=== PATIENT | male | born 1960 | race Caucasian/White ===

== ENCOUNTER 2022-11-07 11:38 | Inpatient (IN) | payer BC ==
[~2022-11-07] VITALS: Ht 185.4 cm; Wt 117.2 kg
[2022-11-07 11:59] LABS: BASOPHILS # (AUTO) 0.1 X10'3 (0-0.2); EOSINOPHILS % (AUTO) 0.3 % (0-6); HEMOGLOBIN 15.4 g/dl (14.0-17.9); LYMPHOCYTES # (AUTO) 1.1 X10'3 (1.1-4.8); MEAN CORPUSCULAR HEMOGLOBIN 30.7 PG (27.0-31.0); MEAN PLATELET VOLUME 9.4 FL (7.4-10.4); NEUTROPHILS # (AUTO) 5.3 X10'3 (1.8-7.7)
[2022-11-07 12:01] LABS: BASOPHILS % (AUTO) 0.9 % (0-1); LYMPHOCYTES % (AUTO) 15.7 % (21-51); MEAN CORPUSCULAR HGB CONC 32.9 g/dL (33.0-36.5); MEAN CORPUSCULAR VOLUME 93.3 FL (78-98); MONOCYTES # (AUTO) 0.7 X10'3 (0-0.9); MONOCYTES % (AUTO) 9.8 % (2-12); NEUTROPHILS % (AUTO) 73.3 % (42-75); PLATELET COUNT 152 X10'3 (140-440); RED BLOOD COUNT 5.04 X10'6 (4.70-6.10); RED CELL DISTRIBUTION WIDTH 14.4 % (11.5-14.5); WHITE BLOOD COUNT 7.2 X10'3 (4.5-11.0)
[2022-11-07 12:22] LABS: ALANINE AMINOTRANSFERASE 36 U/L (12-78); ALBUMIN 3.5 G/DL (3.4-5.0); ALKALINE PHOSPHATASE 74 IU/L (46-116); ANION GAP 11 (8-16); ASPARTATE AMINO TRANSFERASE 51 U/L (10-37); BILIRUBIN,TOTAL 3.4 MG/DL (0.1-1.0); BLOOD UREA NITROGEN 23 MG/DL (7-18); CALCIUM 9.1 MG/DL (8.5-10.1); CHLORIDE 95 MMOL/L (99-107); CREATININE 1.53 MG/DL (0.60-1.10); GLUCOSE 136 MG/DL (70-104); PRO BRAIN NATRIURETIC PEPTIDE 3542 PG/ML (0-125); SODIUM 134 MMOL/L (135-145); TOTAL CARBON DIOXIDE 28.1 MMOL/L (24-32); TOTAL PROTEIN 6.9 G/DL (6.4-8.2); eCRCL 56 ML/MIN; eGFR 46 ML/MIN
[2022-11-07 12:23] LABS: POTASSIUM 2.9 MMOL/L (3.5-5.1)
[2022-11-07 12:34] LABS: LARGE PLATELETS FEW; PLATELET ESTIMATE NORMAL
--- NOTE | 2022-11-07 13:44 | NUR ---
EMT STUDENT BILL ATTEMPTING IV AT THIS TIME AND WILL COLLECT BLOOD FOR LABS.
[2022-11-07] MEDS ORDERED: carvedilol 6.25mg tablet PO STA (14:53)
[2022-11-07] MEDS ORDERED: aspirin 81mg tab.chew PO ONE (14:55)
[2022-11-07] MEDS ORDERED: potassium CL 10mEq/100ml bag 100 ML IV ONE (15:00)
[2022-11-07] MEDS ORDERED: potassium Cl 40MEQ/1/2NS 520ml 520 ML IV ONE (15:00)
[2022-11-07] MEDS ORDERED: magnesium oxide 400mg tablet PO ONE (15:00)
[2022-11-07] MEDS ORDERED: magnesium 2GM in 50ml NS 50 ML IV ONE (15:00)
[2022-11-07] MEDS ORDERED: potassium Cl 20 mEq SR tablet PO STA (15:06)
--- NOTE | 2022-11-07 16:01 | NUR ---
RN CK PT BG AND IT WAS 116
[2022-11-07 16:03] LABS: APTT 29 SECONDS (22-32); C-REACTIVE PROTEIN 1.65 MG/DL (0.0-0.5); INR 1.3 INR; MAGNESIUM 1.6 MG/DL (1.5-2.4); PROTHROMBIN TIME 14.2 SECONDS (9.0-12.0)
[2022-11-07 16:08] LABS: ETHANOL < 10 MG/DL (<10)
--- NOTE | 2022-11-07 16:20 | NUR ---
PT TROP 77. RN NOTIFIED DR ZHOU. NO ORDS RECD.
[2022-11-07] MEDS ORDERED: METF-1203 PO (16:24)
[2022-11-07] MEDS ORDERED: DAPA5TAB PO (16:24)
[2022-11-07] MEDS ORDERED: PANT40TA54 PO (16:24)
[2022-11-07] MEDS ORDERED: magnesium hydroxide 30ml (MOM) UD suspension PO PRN (17:10)
[2022-11-07] MEDS ORDERED: acetaminophen 325mg tablet PO PRN (17:10)
[2022-11-07] MEDS ORDERED: ondansetron/PF 4mg/2ml inj IV PRN (17:10)
[2022-11-07] MEDS ORDERED: magnesium Cl slow-release 64mg tablet PO PRN (17:10)
[2022-11-07] MEDS ORDERED: potassium Cl 20 mEq SR tablet PO PRN (17:10)
[2022-11-07] MEDS ORDERED: potassium Cl 40MEQ/1/2NS 520ml 520 ML IV PRN (17:10)
[2022-11-07] MEDS ORDERED: magnesium 2GM in 50ml NS 50 ML IV PRN (17:10)
[2022-11-07] MEDS ORDERED: magnesium 4gm in 100ml NS 100 ML IV PRN (17:10)
[2022-11-07] MEDS ORDERED: mag hydrox/Alum hydrox/simeth 30ml oral suspension PO PRN (17:10)
--- NOTE | 2022-11-07 17:15 | NUR ---
PT HAVING ECHO AT THIS TIME. BED IS BLOCKING IV POLE. RN WILL START MAG ONCE ECHO COMPLETE. PER PHARMACIST MAG AND K HAVE NOT BEEN TESTED AND RAN TOGETHER. RN INQ WITH DR ZHOU AND HE APPROVED THEM RUNNING TOGETHER YSIDE SO RN WILL NOT HAVE TO PLACE A NEW IV.
[2022-11-07] MEDS ORDERED: furosemide 40mg/4ml inj IV STA (17:23)
[2022-11-07] MEDS: aspirin 81mg, enteric-coated 1 TAB TABLET.DR PO SCH (17:30)
[2022-11-07] MEDS ORDERED: dextrose 50%-water 50ml dispensing syringe IV PRN ×2 (18:00)
[2022-11-07] MEDS ORDERED: DEXTROSE 15 GM of carb/4 tabs (each vial/BOTTLE has 4 tablets) PO PRN ×2 (18:00)
[2022-11-07] MEDS ORDERED: insulin Lispro (HumaLOG) vial - multi-dose SQ SCH (18:00)
[2022-11-07] MEDS ORDERED: haloperidol 5mg tablet PO PRN (18:00)
[2022-11-07] MEDS ORDERED: MESSAGE TO PHARMACY PO ONE (18:00)
[2022-11-07] MEDS ORDERED: LORazepam 2 mg/ml vial IV PRN (18:00)
[2022-11-07] MEDS ORDERED: glucagon, human recombinant 1mg kit SUBCUT PRN (18:00)
--- NOTE | 2022-11-07 18:14 | NUR ---
PT REPORTS INCREASING SOB AND WEAKNESS BUT NO CP. REPEAT EKG BEING DONE AT THIS TIME. 2 L BNC O2 APPLIED. VS TAKEN.
--- NOTE | 2022-11-07 18:16 | NUR ---
RN NOTIFIED DR ZHOU THAT PT C/O INCREASING SOB, 2L BNC APPLIED SAT 99%, BP 94/71 REPEAT ON OPPOSITE ARM 94/71/HR 102/REPEAT EKG DONE/ECHO FINISHED. PER DR ZHOU CONT TO MONITOR.
--- NOTE | 2022-11-07 18:34 | NUR ---
DANETTE ROY WILL HANG MAG.
[2022-11-07 19:07] LABS: BILIRUBIN,URINE MODERATE (Neg); CLARITY,URINE SLIGHTLY CLOUDY (Clear); GLUCOSE, URINE NEGATIVE (Neg); KETONES,URINE TRACE mg/dl (Neg); LEUKOCYTE ESTERASE ,URINE NEGATIVE (Neg); NITRITES, URINE NEGATIVE (Neg); OCCULT BLOOD,URINE NEGATIVE (Neg); PH,URINE 5.5 (4.8-8.0); PROTEIN,URINE 100 mg/dl (Neg)
[2022-11-07 19:11] LABS: COLOR,URINE DARK YELLOW (Yellow); UA COLLECTION TYPE CLN CATCH MIDSTREAM
[2022-11-07 19:14] LABS: URINE AMPHETAMINE SCREEN POSITIVE (Neg); URINE BARBITUATE SCREEN NEGATIVE (Neg); URINE BENZODIAZEPINES SCREEN NEGATIVE (Neg); URINE CANNABINOID SCREEN NEGATIVE (Neg); URINE COCAINE SCREEN NEGATIVE (Neg); URINE METHADONE SCREEN NEGATIVE (Neg); URINE OPIATE SCREEN NEGATIVE (Neg); URINE PHENCYCLIDINE SCREEN NEGATIVE (Neg)
[2022-11-07 19:17] LABS: BACTERIA,URINE FEW /HPF (Neg); MUCUS STRANDS FEW /LPF (Neg); SQUAMOUS EPITHELIAL CELL,UR FEW /LPF (FEW)
[2022-11-07 19:18] LABS: COARSE GRANULAR CAST 0-3 /LPF (NEGATIVE); SPERM FEW /HPF (NEGATIVE)
--- NOTE | 2022-11-07 19:25 | NUR ---
PAGER ID: [phone] MESSAGE: Pelon Reardon admitted patient in ER 4, her for New onset CHF. Pt is increasingly agitated, Says he cant breath tho O2 is 97 on room air. Mottling appearing on abdomen and legs. Florina ROY [id number]
[2022-11-07] MEDS: sacubitril/valsartan 24mg-26mg tablet PO SCH (20:00)
[2022-11-07] MEDS: K and/or MAG REPLACEMENT MC SCH (20:00)
[2022-11-07 20:04] VITALS: PULSE 89; RESP 34; O2SAT 98
[2022-11-07 20:51] LABS: C-REACTIVE PROTEIN 1.65 MG/DL (0.0-0.5)
[2022-11-07] MEDS: insulin glargine (Lantus) pen - multi-dose SQ SCH (21:00)
--- NOTE | 2022-11-07 22:05 | NUR ---
Pt arrived from via [place]ney.
[2022-11-07 22:18] VITALS: BP 124/77; PULSE 96; RESP 20; TEMP 97.4; O2SAT 98
[2022-11-07 22:21] VITALS: PULSE 91; RESP 23; O2SAT 96
[2022-11-07] MEDS: heparin, porcine 5000 units/ml vial SQ SCH (22:37)
[2022-11-07 22:43] VITALS: RESP 20; O2SAT 98
[2022-11-07 23:00] VITALS: PULSE 93; RESP 28; O2SAT 95
[2022-11-08] VITALS (8 sets, daily range): BP systolic 78–111; BP diastolic 40–83; PULSE 88–102; RESP 17–23; TEMP 97.4–100.4; O2SAT 91–98
--- NOTE | 2022-11-08 01:59 | NUR ---
Took off Bipap per pt request. No sign of respiratory distress. Pt breathing easily, O2 sats WNL.
[2022-11-08 03:29] LABS: HEMOGLOBIN 15.7 g/dl (14.0-17.9)
[2022-11-08 03:31] LABS: BASOPHILS % (AUTO) 0.4 % (0-1); EOSINOPHILS % (AUTO) 0.1 % (0-6); HEMATOCRIT 48.3 % (42.0-52.0); LYMPHOCYTES # (AUTO) 1.2 X10'3 (1.1-4.8); LYMPHOCYTES % (AUTO) 20.3 % (21-51); MEAN CORPUSCULAR HEMOGLOBIN 30.5 PG (27.0-31.0); MEAN CORPUSCULAR HGB CONC 32.6 g/dL (33.0-36.5); MEAN CORPUSCULAR VOLUME 93.8 FL (78-98); MEAN PLATELET VOLUME 9.9 FL (7.4-10.4); MONOCYTES # (AUTO) 0.5 X10'3 (0-0.9); MONOCYTES % (AUTO) 9.2 % (2-12); NEUTROPHILS # (AUTO) 4.2 X10'3 (1.8-7.7); PLATELET COUNT 138 X10'3 (140-440); RED BLOOD COUNT 5.15 X10'6 (4.70-6.10); RED CELL DISTRIBUTION WIDTH 14.5 % (11.5-14.5); WHITE BLOOD COUNT 5.9 X10'3 (4.5-11.0)
[2022-11-08 03:45] LABS: ALANINE AMINOTRANSFERASE 36 U/L (12-78); ALBUMIN 3.2 G/DL (3.4-5.0); ALKALINE PHOSPHATASE 67 IU/L (46-116); ANION GAP 8 (8-16); ASPARTATE AMINO TRANSFERASE 60 U/L (10-37); BILIRUBIN,TOTAL 3.3 MG/DL (0.1-1.0); BLOOD UREA NITROGEN 27 MG/DL (7-18); BUN/CREATININE RATIO 14.6 (10.0-20.0); CHLORIDE 99 MMOL/L (99-107); CHOL/HDL RATIO 3.8 (0.00-4.99); CHOLESTEROL 126 MG/DL (0-200); CREATININE 1.85 MG/DL (0.60-1.10); GLUCOSE 142 MG/DL (70-104); HDL CHOLESTEROL 33 MG/DL (35-60); LDL CHOLESTEROL 79 MG/DL (50-100); LIPASE 55 U/L (73-393); POTASSIUM 4.6 MMOL/L (3.5-5.1); SODIUM 136 MMOL/L (135-145); TOTAL CARBON DIOXIDE 28.7 MMOL/L (24-32); TOTAL PROTEIN 6.3 G/DL (6.4-8.2); TRIGLYCERIDES 52 MG/DL (20-135); eCRCL 46 ML/MIN; eGFR 37 ML/MIN
[2022-11-08 03:55] LABS: HEMOGLOBIN A1C 5.9 % (4.5-6.2)
--- NOTE | 2022-11-08 06:20 | NUR ---
Problems reprioritized. Patient report given, questions answered & plan of care reviewed with Archana (KIRILL).
--- NOTE | 2022-11-08 06:31 | NUR ---
Pt has not urinated since 2200 last night. Bladder scanned pt for 297mL in bladder.
[2022-11-08] MEDS ORDERED: furosemide 40mg/4ml inj IV SCH ×2 (07:00→20:00)
[2022-11-08] MEDS ORDERED: DAPAGLIFLOZIN 10MG TABLET PO SCH (08:00)
[2022-11-08] MEDS: K and/or MAG REPLACEMENT MC SCH ×2 (08:00→20:39)
[2022-11-08] MEDS: heparin, porcine 5000 units/ml vial SQ SCH ×2 (08:01→20:43)
[2022-11-08] MEDS: multivitamins, therapeutics tablet PO SCH (08:01)
[2022-11-08] MEDS: atorvastatin 20mg tablet PO SCH (08:02)
[2022-11-08] MEDS: aspirin 81mg, enteric-coated 1 TAB TABLET.DR PO SCH (08:02)
[2022-11-08 08:11] LABS: PATIENT TEMPERATURE 35.7
[2022-11-08 08:12] LABS: ABG BASE EXCESS -0.3 mmol/L (-2.0-2.0); ABG HCO3 21.7 mmol/L (22.0-26.0); ABG PCO2 (T) 27.7 mmHg (35.0-48.0); ABG PH (T) 7.507 (7.340-7.440); ABG PO2 (T) 120.2 mmHg (75.0-100.0); FCOHb 0.7 % (0.0-3.9); FLOW 4 L/min; FO2Hb 97.9 % (94-97); MODE NC; TOTAL HEMOGLOBIN 16.5 G/dl (14.0-17.9)
[2022-11-08 08:13] LABS: ABG OXYGEN SATURATION 98.9 % (94-97); FHHb 1.1 % (0.0-5.0); FMetHb 0.3 % (0.0-1.5)
[2022-11-08] MEDS ORDERED: spironolactone 25 MG tablet PO SCH (08:30)
--- NOTE | 2022-11-08 10:00 | NUR ---
Received order for consult. Tried to meet with patient but he was in X-Ray. I will try again.
[2022-11-08] MEDS: sacubitril/valsartan 24mg-26mg tablet PO SCH ×2 (10:06→20:00)
--- NOTE | 2022-11-08 18:12 | NUR ---
Pt manual blood pressure recheck was 78/40 in bilateral arms. Previous manual blood pressure at 1500 was 90/50. Notified Dr Gloria as requested. Residents will come re-assess patient. Will continue to monitor.
[2022-11-08] MEDS ORDERED: normal saline 500ml IV soln 500 ML IV ONE (18:15)
--- NOTE | 2022-11-08 18:33 | NUR ---
Patient in room PCU 3012. I have received report from Archana (KIRILL) and had the opportunity to ask questions and assume patient care.
--- NOTE | 2022-11-08 19:03 | NUR ---
Problems reprioritized. Patient report given, questions answered & plan of care reviewed with Julián ROY, patient stable at transfer of care.
[2022-11-08] MEDS: insulin glargine (Lantus) pen - multi-dose SQ SCH (20:39)
--- NOTE | 2022-11-08 23:20 | NUR ---
Paged Dr. Tian about pt low bp. 80/50. urine output 25mL in 3 hours.
[2022-11-09] VITALS (9 sets, daily range): BP systolic 85–101; BP diastolic 55–65; PULSE 87–102; RESP 13–18; TEMP 97–98; O2SAT 93–99
--- NOTE | 2022-11-09 00:08 | NUR ---
Sent 2nd page and phone call to MD advising of low BP (80/50) and low urine output.
[2022-11-09] MEDS ORDERED: normal saline 500ml IV soln 500 ML IV SCH (00:10)
--- NOTE | 2022-11-09 00:34 | NUR ---
started 500mL NS bolus at 250mL/hr per MD orders for low BP/urine output
--- NOTE | 2022-11-09 06:14 | NUR ---
Problems reprioritized. Patient report given, questions answered & plan of care reviewed with Archana (KIRILL).
[2022-11-09 06:36] LABS: PLATELET COUNT 146 X10'3 (140-440)
[2022-11-09 06:39] LABS: BASOPHILS % (AUTO) 0.6 % (0-1); EOSINOPHILS # (AUTO) 0.1 X10'3 (0-0.9); EOSINOPHILS % (AUTO) 0.9 % (0-6); HEMATOCRIT 45.4 % (42.0-52.0); HEMOGLOBIN 15.1 g/dl (14.0-17.9); LYMPHOCYTES # (AUTO) 1.7 X10'3 (1.1-4.8); LYMPHOCYTES % (AUTO) 22.5 % (21-51); MEAN CORPUSCULAR HEMOGLOBIN 30.7 PG (27.0-31.0); MEAN CORPUSCULAR HGB CONC 33.2 g/dL (33.0-36.5); MEAN CORPUSCULAR VOLUME 92.5 FL (78-98); MONOCYTES # (AUTO) 0.8 X10'3 (0-0.9); MONOCYTES % (AUTO) 10.9 % (2-12); NEUTROPHILS # (AUTO) 4.9 X10'3 (1.8-7.7); NEUTROPHILS % (AUTO) 65.1 % (42-75); RED BLOOD COUNT 4.91 X10'6 (4.70-6.10); RED CELL DISTRIBUTION WIDTH 14.5 % (11.5-14.5); WHITE BLOOD COUNT 7.6 X10'3 (4.5-11.0)
[2022-11-09 06:59] LABS: ALANINE AMINOTRANSFERASE 39 U/L (12-78); ALBUMIN 2.7 G/DL (3.4-5.0); ALKALINE PHOSPHATASE 63 IU/L (46-116); ANION GAP 7 (8-16); ASPARTATE AMINO TRANSFERASE 78 U/L (10-37); BILIRUBIN,TOTAL 2.4 MG/DL (0.1-1.0); BLOOD UREA NITROGEN 34 MG/DL (7-18); BUN/CREATININE RATIO 21.4 (10.0-20.0); CALCIUM 8.4 MG/DL (8.5-10.1); CHLORIDE 100 MMOL/L (99-107); CREATININE 1.59 MG/DL (0.60-1.10); GLUCOSE 120 MG/DL (70-104); POTASSIUM 3.2 MMOL/L (3.5-5.1); SODIUM 135 MMOL/L (135-145); TOTAL CARBON DIOXIDE 27.9 MMOL/L (24-32); TOTAL PROTEIN 5.4 G/DL (6.4-8.2); eCRCL 54 ML/MIN; eGFR 44 ML/MIN
[2022-11-09] MEDS: potassium Cl 20 mEq SR tablet PO PRN ×3 (07:48→20:52)
[2022-11-09] MEDS: atorvastatin 20mg tablet PO SCH (07:48)
[2022-11-09] MEDS: aspirin 81mg, enteric-coated 1 TAB TABLET.DR PO SCH (07:49)
[2022-11-09] MEDS: multivitamins, therapeutics tablet PO SCH (07:49)
[2022-11-09] MEDS: DAPAGLIFLOZIN 10MG TABLET PO SCH (07:51)
[2022-11-09] MEDS: sacubitril/valsartan 24mg-26mg tablet PO SCH ×2 (08:00→20:51)
[2022-11-09] MEDS: K and/or MAG REPLACEMENT MC SCH ×2 (08:00→20:00)
[2022-11-09 08:18] LABS: LARGE PLATELETS FEW; PLATELET ESTIMATE NORMAL
[2022-11-09] MEDS: heparin, porcine 5000 units/ml vial SQ SCH ×2 (08:23→20:52)
[2022-11-09] MEDS ORDERED: spironolactone 25 MG tablet PO SCH (08:30)
[2022-11-09] MEDS ORDERED: furosemide 20 MG/2 ML vial IV SCH (12:16)
[2022-11-09] MEDS: furosemide 20 MG/2 ML vial IV SCH ×2 (12:37→20:00)
--- NOTE | 2022-11-09 18:10 | NUR ---
Patient in room PCU 3012. I have received report from KIRILL Magaña and had the opportunity to ask questions and assume patient care.
--- NOTE | 2022-11-09 18:14 | NUR ---
Problems reprioritized. Patient report given, questions answered & plan of care reviewed with Lita ROY, patient stable at transfer of care.
[2022-11-09] MEDS ORDERED: carVEDilol 3.125mg tablet PO SCH (20:00)
[2022-11-09] MEDS: insulin glargine (Lantus) pen - multi-dose SQ SCH (21:00)
[2022-11-10 02:00] VITALS: BP 84/60; PULSE 85; RESP 18; TEMP 96.4; O2SAT 94
[2022-11-10 06:26] LABS: EOSINOPHILS # (AUTO) 0.1 X10'3 (0-0.9); EOSINOPHILS % (AUTO) 0.8 % (0-6); MONOCYTES # (AUTO) 0.9 X10'3 (0-0.9); NEUTROPHILS # (AUTO) 5.2 X10'3 (1.8-7.7)
[2022-11-10 06:28] LABS: BASOPHILS % (AUTO) 0.6 % (0-1); HEMATOCRIT 45.3 % (42.0-52.0); HEMOGLOBIN 15.1 g/dl (14.0-17.9); LYMPHOCYTES # (AUTO) 1.4 X10'3 (1.1-4.8); MEAN CORPUSCULAR HGB CONC 33.3 g/dL (33.0-36.5); MEAN CORPUSCULAR VOLUME 93.1 FL (78-98); MEAN PLATELET VOLUME 10.5 FL (7.4-10.4); MONOCYTES % (AUTO) 11.3 % (2-12); NEUTROPHILS % (AUTO) 69.3 % (42-75); PLATELET COUNT 164 X10'3 (140-440); RED BLOOD COUNT 4.86 X10'6 (4.70-6.10); RED CELL DISTRIBUTION WIDTH 14.6 % (11.5-14.5); WHITE BLOOD COUNT 7.6 X10'3 (4.5-11.0)
--- NOTE | 2022-11-10 06:32 | NUR ---
Problems reprioritized. Patient report given, questions answered & plan of care reviewed with KIRILL Magaña.
[2022-11-10 06:41] LABS: ALANINE AMINOTRANSFERASE 45 U/L (12-78); ALBUMIN 3.2 G/DL (3.4-5.0); ALBUMIN/GLOBULIN RATIO 1.1 (1.1-1.5); ALKALINE PHOSPHATASE 77 IU/L (46-116); ANION GAP 9 (8-16); ASPARTATE AMINO TRANSFERASE 63 U/L (10-37); BILIRUBIN,TOTAL 2.5 MG/DL (0.1-1.0); BLOOD UREA NITROGEN 34 MG/DL (7-18); BUN/CREATININE RATIO 23.4 (10.0-20.0); CALCIUM 9.1 MG/DL (8.5-10.1); CHLORIDE 100 MMOL/L (99-107); CREATININE 1.45 MG/DL (0.60-1.10); GLUCOSE 129 MG/DL (70-104); MAGNESIUM 1.8 MG/DL (1.5-2.4); POTASSIUM 3.6 MMOL/L (3.5-5.1); SODIUM 137 MMOL/L (135-145); TOTAL CARBON DIOXIDE 27.8 MMOL/L (24-32); TOTAL PROTEIN 6.2 G/DL (6.4-8.2); eCRCL 59 ML/MIN; eGFR 49 ML/MIN
--- NOTE | 2022-11-10 06:57 | NUR ---
Patient in room PCU 3012. I have received report from Lita ROY and had the opportunity to ask questions and assume patient care.
[2022-11-10 07:15] VITALS: BP 96/75; PULSE 89; RESP 15; TEMP 97.2; O2SAT 93
[2022-11-10 08:00] VITALS: RESP 15; O2SAT 93
[2022-11-10] MEDS: K and/or MAG REPLACEMENT MC SCH (08:00)
[2022-11-10] MEDS: DAPAGLIFLOZIN 10MG TABLET PO SCH (08:22)
[2022-11-10] MEDS: aspirin 81mg, enteric-coated 1 TAB TABLET.DR PO SCH (08:22)
[2022-11-10] MEDS: atorvastatin 20mg tablet PO SCH (08:24)
[2022-11-10] MEDS: furosemide 20 MG/2 ML vial IV SCH ×2 (08:25→09:11)
[2022-11-10] MEDS: heparin, porcine 5000 units/ml vial SQ SCH (08:25)
[2022-11-10 11:00] VITALS: BP 91/62; PULSE 97; RESP 12; TEMP 98; O2SAT 95
--- NOTE | 2022-11-10 11:42 | NUR ---
Noted pt on a CHO controlled heart healthy diet though A1c 5.9% with insulin not administered d/t not being needed and lipid panel WNL with episodes of hypotension during admit. TC to RN who states pt needs heart healthy restriction d/t pt being swollen. Recommend diet change to sodium restriction to assist with preventing fluid retention rather than heart healthy diet. Per RN pt discharging today. Will continue to follow and make recommendations as appropriate. Addendum: 11/10/22 at [address] Amended: Links added.
[2022-11-10] MEDS ORDERED: COR3.125T PO (11:48)
[2022-11-10] MEDS ORDERED: thiamine tablet PO (11:48)
[2022-11-10] MEDS ORDERED: DAPA10TA PO (11:48)
[2022-11-10] MEDS ORDERED: ASPI-1071 PO (11:48)
[2022-11-10] MEDS ORDERED: FURO20TA4 PO (11:48)
[2022-11-10] MEDS ORDERED: SACU1TAB PO (11:48)
[2022-11-10] MEDS ORDERED: FOLI1TAB27 PO (11:48)
[2022-11-10] MEDS ORDERED: ATOR20TA66 PO (11:48)
[2022-11-12] MEDS ORDERED: folic acid 1mg tablet PO SCH (08:00)
[2022-11-12] MEDS ORDERED: thiamine 100mg tablet PO SCH (08:00)
== END 2022-11-10 15:26 | disposition home or self-care (01) | DRG 280 ==
LOC: ER 11:39 → ED HOLD 17:15 → UNDOADMIN 17:40 → ED HOLD 17:40 → EDBEDREQ 18:07 → PCU 3S 22:05 → ED HOLD 22:05
PROVIDERS: ADMIT Family Medicine; ATTEND Family Medicine
PROC: 5A09357 Assistance with Respiratory Ventilation, Less than 24 Consecutive Hours, Continuous Positive Airway Pressure (ICD-10-PCS; principal; 2022-11-07)
PROC: CB121ZZ Planar Nuclear Medicine Imaging of Lungs and Bronchi using Technetium 99m (Tc-99m) (ICD-10-PCS; 2022-11-07)
DX: I13.0 Hypertensive heart and chronic kidney disease with heart failure and stage 1 through stage 4 chronic kidney disease, or unspecified chronic kidney disease (principal); I50.41 Acute combined systolic (congestive) and diastolic (congestive) heart failure; I21.A1 Myocardial infarction type 2; N17.9 Acute kidney failure, unspecified; I42.7 Cardiomyopathy due to drug and external agent; Z20.822 Contact with and (suspected) exposure to COVID-19; E80.6 Other disorders of bilirubin metabolism; E11.22 Type 2 diabetes mellitus with diabetic chronic kidney disease; F10.20 Alcohol dependence, uncomplicated; N18.9 Chronic kidney disease, unspecified; K70.30 Alcoholic cirrhosis of liver without ascites; E83.42 Hypomagnesemia; E87.6 Hypokalemia; I95.9 Hypotension, unspecified; F15.10 Other stimulant abuse, uncomplicated; Z79.899 Other long term (current) drug therapy; Z81.1 Family history of alcohol abuse and dependence; Z82.3 Family history of stroke; Z82.49 Family history of ischemic heart disease and other diseases of the circulatory system; Z87.891 Personal history of nicotine dependence; Z79.82 Long term (current) use of aspirin; Z71.51 Drug abuse counseling and surveillance of drug abuser; Z71.41 Alcohol abuse counseling and surveillance of alcoholic
CPT/HCPCS: 36415; 36600; 71045; 76700; 78582; 80053; 80061; 80305; 80320; 81001; 82803; 82948; 83036; 83615; 83690; 83735; 83880; 84145; 84484; 85008; 85018; 85025; 85379; 85610; 85730; 86140; 87081; 87088; 87811; 93005; 93306; 93970; 94660; 94760; 96374; 96375; 99285; A4314; A9539; A9540; G0378; J1644; J1815; J1940; J2060; J3475; J3480; J7040